=== PATIENT | female | born 1990 | race Caucasian/White ===

== ENCOUNTER 2017-09-16 01:18 | Emergency (ER) | payer SELFPAY ==
[~2017-09-16] VITALS: Ht 152.4 cm; Wt 79.5 kg
[2017-09-16 01:25] VITALS: BP 138/84; PULSE 72; RESP 16; TEMP 97.9; O2SAT 98
[2017-09-16 01:40] VITALS: BP 138/84; PULSE 72; RESP 16; TEMP 97.9
[2017-09-16 02:51] LABS: AUTOMATED NEUTROPHIL # 5.3 TH/MM3 (1.8-7.7); BASOPHIL # 0.1 TH/MM3 (0-0.2); BASOPHIL % 0.7 % (0.0-2.0); EOSINOPHIL # 0.1 TH/MM3 (0-0.4); EOSINOPHIL % 1.6 % (0.0-4.0); HEMATOCRIT 44.3 % (35.0-46.0); HEMO FLAGS DIFF FINAL; LYMPH % 33.4 % (9.0-44.0); MEAN CELL VOLUME 84.7 FL (80.0-100.0); MEAN CORPUSCULAR HGB CONC 31.9 % (32.0-36.0); MONO % 6.1 % (0.0-8.0); NEUT % 58.2 % (16.0-70.0); PLATELET COUNT 259 TH/MM3 (150-450); RED BLOOD COUNT 5.23 MIL/MM3 (4.00-5.30); RED CELL DISTRIBUTION WIDTH 13.6 % (11.6-17.2); WHITE BLOOD COUNT 9.1 TH/MM3 (4.0-11.0)
[2017-09-16 02:52] LABS: BLOOD, URINE NEG (NEG); GLUCOSE,URINE NEG (NEG); KETONE, URINE 40 mg/dL (NEG); NITRITE,URINE NEG (NEG); PH, URINE 6.5 (5.0-8.5)
--- NOTE | 2017-09-16 02:58 | PD ---
HPI Chief Complaint: Abdominal Pain Time Seen by Provider: 02:22 Travel History International Travel<30 days: No Contact w/Intl Traveler<30days: No Traveled to known affect area: No History of Present Illness HPI The patient is a 27-year-old female who has vomiting and epigastric pain as well as bilateral lower quadrant pain, right greater than left for 5 days. She does not have a doctor or insurance and went to the emergency department in [place], she lives in [place], and they gave her Bentyl and Zofran but she states it's not working. She states there is no possibility of , she is a lesbian and does not have sex with men. She states her pain levels of 8/ 10. She denies any dysuria, frequency or urgency. She denies any history of bowel problems, recent antibiotic use, recent foreign travel or well water ingestion. She denies any blood in the vomitus or stool. She denies any diarrhea. PFSH Past Medical History Influenza Vaccination: No ?: Not LMP: Ended on 09/15/2017 Social History Alcohol Use: Yes (Occasional) Tobacco Use: Yes (6-7 cigarettes/daily) Substance Use: No Allergies-Medications (Allergen,Severity, Reaction): Coded Allergies: No Known Allergies (Unverified , 09/16/17) Reported Meds & Prescriptions Reported Meds & Active Scripts Active Prochlorperazine Maleate 10 Mg Tab 10 Mg PO Q6H PRN Review of Systems Except as stated in HPI: all other systems reviewed are Neg Physical Exam Narrative GENERAL: The patient is alert, oriented 3, minimally dehydrated appearing in slight apparent distress with her abdominal discomfort. Her vital signs are normal. SKIN: Focused skin assessment warm/dry. HEAD: Atraumatic. Normocephalic. EYES: Pupils equal and round. No scleral icterus. No injection or drainage. ENT: No nasal bleeding or discharge. Mucous membranes pink and moist. NECK: Trachea midline. No JVD. CARDIOVASCULAR: Regular rate and rhythm. No murmur appreciated. RESPIRATORY: No accessory muscle use. Clear to auscultation. Breath sounds equal bilaterally. GASTROINTESTINAL: Abdomen soft, with tenderness to direct palpation in the right lower quadrant and epigastrium, nondistended. Hepatic and splenic margins not palpable. No guarding or rebound is present. MUSCULOSKELETAL: No obvious deformities. No clubbing. No cyanosis. No edema. NEUROLOGICAL: Awake and alert. No obvious cranial nerve deficits. Motor grossly within normal limits. Normal speech. PSYCHIATRIC: Appropriate mood and affect; insight and judgment normal. Data Data Last Documented VS Vital Signs Date Time Temp Pulse Resp B/P (MAP) Pulse Ox O2 Delivery O2 Flow Rate FiO2 09/16/17 03:25 66 16 137/88 (104) 99 Room Air 09/16/17 01:40 97.9 Orders Orders Complete Blood Count With Diff (09/16/17 02:32) Comprehensive Metabolic Panel (09/16/17 02:32) Urinalysis - C+S If Indicated (09/16/17 02:32) Iv Access Insert/Monitor (09/16/17 02:33) Oxygen Administration (09/16/17 02:33) Oximetry (09/16/17 02:33) Ct Abd/Pel W Iv Contrast(Rout) (09/16/17 02:59) Lipase (09/16/17 02:35) Iohexol 350 Inj (Omnipaque 350 Inj) (09/16/17 03:25) Ed Discharge Order (09/16/17 03:48) Labs Laboratory Tests Test 09/16/17 02:35 White Blood Count 9.1 TH/MM3 Red Blood Count 5.23 MIL/MM3 Hemoglobin 14.1 GM/DL Hematocrit 44.3 % Mean Corpuscular Volume 84.7 FL Mean Corpuscular Hemoglobin 27.0 PG Mean Corpuscular Hemoglobin Concent 31.9 % Red Cell Distribution Width 13.6 % Platelet Count 259 TH/MM3 Mean Platelet Volume 9.7 FL Neutrophils (%) (Auto) 58.2 % Lymphocytes (%) (Auto) 33.4 % Monocytes (%) (Auto) 6.1 % Eosinophils (%) (Auto) 1.6 % Basophils (%) (Auto) 0.7 % Neutrophils # (Auto) 5.3 TH/MM3 Lymphocytes # (Auto) 3.0 TH/MM3 Monocytes # (Auto) 0.6 TH/MM3 Eosinophils # (Auto) 0.1 TH/MM3 Basophils # (Auto) 0.1 TH/MM3 CBC Comment DIFF FINAL Differential Comment Urine Collection Type CLEAN CATCH Urine Color YELLOW Urine Turbidity CLEAR Urine pH 6.5 Urine Specific Hickman 1.020 Urine Protein NEG mg/dL Urine Glucose (UA) NEG mg/dL Urine Ketones 40 mg/dL Urine Occult Blood NEG Urine Nitrite NEG Urine Bilirubin NEG Urine Leukocyte Esterase TRACE Urine WBC 0-2 /hpf Urine Squamous Epithelial Cells 6-8 /hpf Urine Bacteria FEW /hpf Urine Mucus MOD /lpf Microscopic Urinalysis Comment CULT NOT INDICATED Blood Urea Nitrogen 11 MG/DL Creatinine 0.86 MG/DL Random Glucose 92 MG/DL Total Protein 8.4 GM/DL Albumin 4.1 GM/DL Calcium Level 9.0 MG/DL Alkaline Phosphatase 60 U/L Aspartate Amino Transf (AST/SGOT) 19 U/L Alanine Aminotransferase (ALT/SGPT) 22 U/L Total Bilirubin 0.3 MG/DL Sodium Level 137 MEQ/L Potassium Level 3.6 MEQ/L Chloride Level 102 MEQ/L Carbon Dioxide Level 25.0 MEQ/L Anion Gap 10 MEQ/L Estimat Glomerular Filtration Rate 80 ML/MIN Lipase 109 U/L MDM Medical Decision Making Medical Screen Exam Complete: Yes Emergency Medical Condition: Yes Medical Record Reviewed: Yes Interpretation(s) The CT abdomen/pelvis with IV contrast shows no evidence of acute abdominal or pelvic process. The urine shows trace leukocyte Estrace and few bacteria but is otherwise normal and culture is not indicated. The CBC is normal. The complete metabolic profile shows a GFR of 80 and total protein 8.4 but is otherwise normal. Differential Diagnosis Gastroenteritis, colitis, acute appendicitis, cholecystitis, anemia, electrolyte disorder Narrative Course The patient appears to have gastroenteritis. There is no imaging evidence or laboratory evidence to support the more serious possibilities above. She is given Compazine for nausea and told to increase her liquid intake. She is to follow-up with a primary care physician. Diagnosis Primary Impression: Gastroenteritis Additional Instructions: Follow-up with a primary care physician. At this time you need to drink clear liquids and take the nausea medicine regularly. The Compazine is a little stronger than Zofran but it does make you little sleepy. Be careful about driving and do not drink alcohol with Compazine. Med/Other Pt SpecificInfo: Prescription(s) given Scripts Prochlorperazine Maleate (Prochlorperazine Maleate) 10 Mg Tab 10 MG PO Q6H Y for NAUSEA OR VOMITING, #30 TAB 0 Refills Prov: Ivan Diamond MD 09/16/17 Disposition: 01 DISCHARGE HOME Condition: Stable Ivan Diamond MD Sep 16, 2017 02:58
[2017-09-16 03:01] LABS: CHLORIDE 102 MEQ/L (98-107); POTASSIUM 3.6 MEQ/L (3.5-5.1); SODIUM (NA) 137 MEQ/L (136-145)
[2017-09-16 03:04] LABS: ANION GAP 10 MEQ/L (5-15)
[2017-09-16 03:05] LABS: BLOOD UREA NITROGEN 11 MG/DL (7-18)
[2017-09-16 03:07] LABS: ALT (GPT) 22 U/L (10-53); AST (GOT) 19 U/L (15-37); GLOMERULAR FILTRATION RATE 80 ML/MIN (>89); METHOD OF COLLECTION CLEAN CATCH; MUCUS URINE MOD /lpf (OCC); URINE COLOR YELLOW (YELLW/STRAW); WBC, URINE 0-2 /hpf (0-5)
[2017-09-16 03:08] LABS: BACTERIA, URINE FEW /hpf; COMMENT (UR) CULT NOT INDICATED; CULTURE IF INDICATED CULT NOT INDICATED
[2017-09-16 03:09] LABS: TOTAL BILIRUBIN ADULT 0.3 MG/DL (0.2-1.0)
[2017-09-16 03:10] LABS: ALKALINE PHOSPHATASE 60 U/L (45-117)
[2017-09-16 03:25] VITALS: BP 137/88; PULSE 66; RESP 16; O2SAT 99
[2017-09-16] MEDS ORDERED: IOHEXOL 350 MG/ML 10 ML VIAL (for RAD DIAG) IVCONTRAST ONE (03:25)
--- NOTE | 2017-09-16 03:38 | RADRPT ---
EXAM DATE/TIME: 09/16/2017 03:11 [facility] COMPARISON: No previous studies available for comparison. INDICATIONS : Lower quadrant abdomen pain with intermittent fever. IV CONTRAST: 100 cc Omnipaque 350 (iohexol) IV ORAL CONTRAST: No oral contrast ingested. RADIATION DOSE: 12.79 CTDIvol (mGy) MEDICAL HISTORY : None SURGICAL HISTORY : None. ENCOUNTER: Initial ACUITY: 1 day PAIN SCALE: 7/10 LOCATION: abdomen TECHNIQUE: Volumetric scanning of the abdomen and pelvis was performed. Using automated exposure control and ad justment of the mA and/or kV according to patient size, radiation dose was kept as low as reasonably achievable to obtain optimal diagnostic quality images. DICOM format image data is available electro nically for review and comparison. FINDINGS: Examination of the lung bases demonstrates no abnormality. No pleural fluid is identified. No pulmona ry nodules are present. The liver and spleen are free of focal defects. The gallbladder and pancreas demonstrate no abnormality. The adrenal glands are normal. The kidneys demonstrate no evidence of pepe id renal mass or hydronephrosis. No free fluid or abdominal masses are identified. No para-aortic jez nopathy is seen. Examination of the right lower quadrant demonstrates no abnormality. The appendix is identified and appears normal. Examination of the pelvis demonstrates no evidence of free fluid or pelvic mass. No abnormally enlarg ed inguinal or retroperitoneal lymph nodes are present. The bladder is unremarkable. CONCLUSION: 1. No evidence of acute abdominal or pelvic process. No masses are identified. Azar Meeks MD on September 16, 2017 at 3:34 Board Certified Radiologist. This report was verified electronically.
[2017-09-16] MEDS ORDERED: PROC10TA PO (03:47)
[2017-09-16 03:58] VITALS: BP 124/90
== END 2017-09-16 04:22 | disposition home or self-care (01) ==
LOC: PHED 01:18
DX: K52.9 Noninfective gastroenteritis and colitis, unspecified (principal)
CPT/HCPCS: 74177; 80053; 81001; 83690; 85025; 99285; Q9967